=== PATIENT | male | born 1940 | race Caucasian/White ===

== ENCOUNTER 2016-12-09 08:44 | Day surgery (SDC) | payer MEDICARE ==
--- NOTE | 2016-12-02 13:49 | HISTORY AND PHYSICAL E ---
History and Physical NAME: CARLOTTA JAMESON : 1940 AGE: 76Y ADMITTED: 12/09/2016 ROOM: CHIEF COMPLAINT: Patient presented for colon screening. HISTORY OF THE PRESENT ILLNESS: Patient referred to us by Katie. Patient presented regarding colon screening, history of polyps. Patient is being followed by Yu Georges PA-C. Healthcare provider is Yu Georges PA-C. We did colonoscopy in 2014. He had biopsy of polyp, ascending colon; biopsy of polyp, transverse colon. The polyps were tubular adenoma and hyperplastic. PHYSICAL EXAMINATION: GENERAL: Pleasant, alert, oriented, in no acute distress. VITAL SIGNS: Blood pressure 120/80. Pulse 80. Respirations 18. Temp is 98. HEAD, EYES, EARS, NOSE AND THROAT: Normal. ABDOMEN: Soft. NEUROLOGIC: Negative. REVIEW OF SYSTEMS: CARDIAC: Hypertension. ENDOCRINE: Diabetes. GASTROINTESTINAL: Colon screening. History of adenoma polyp. History of hyperplastic polyp. MUSCULOSKELETAL: Arthritis. FAMILY HISTORY: When I saw him last time, his father was alive at 94. His mom with congestive heart failure. MEDICATIONS: Patient takes losartan, metformin, fish oil. CONCLUSIONS: 1. Diabetes. 2. History of polyps. 3. Colon screening. PLAN: Colonoscopy 12/09. DICTATING PHYSICIAN: RETA MAYO M.D. [id number] PHY#: [id number] ID: [id number] JOB#: [id number] ACCT: [id number] cc:RETA MAYO M.D., MARY PA-C >
[~2016-12-09 08:44] MED LIST: EPINEPHRINE INJ 1 MG/10 ML DISP.SYRIN ONE; FLUMAZENIL INJ 0.5 MG/5 ML VIAL IV ONE; GLUCAGON,HUMAN RECOMB 1 MG INJ ONE; GLYCOPYRROLATE INJ 0.4 MG/2 ML VIAL ONE; LIDOCAINE 2% JELLY 30 ML TUBE ONE; NALOXONE HCL INJ/PF 0.4 MG/1 ML SDV ONE; ONDANSETRON HCL INJ/PF 4 MG/2 ML SDV ONE; PROMETHAZINE HCL INJ 25 MG/1 ML VIAL ONE
[2016-12-09] MEDS: MIDAZOLAM 2 MG/2 ML INJ ONE ×2 (09:03→09:06)
[2016-12-09] MEDS: FENTANYL CITRATE INJ/PF 100 MCG/2 ML AMPUL ONE ×2 (09:05→09:08)
[2016-12-09 10:24] VITALS: BP 122/58
--- NOTE | 2016-12-09 11:13 | DISCHARGE SUMMARY E ---
Discharge Summary NAME: CARLOTTA JAMESON : 1940 AGE: 76Y ADMITTED: 12/09/2016 DISCHARGED: 12/09/2016 SUMMARY: This 76-year-old presented with history of adenoma polyps. Today's colonoscopy shows no polyps. The patient did have sigmoid and descending colon diverticulosis. DISCHARGE PLAN: 1. Soft low-residue diet today and then advance to high-fiber diet. 2. Consider follow-up colonoscopy in 5 years pending clinical evaluation. 3. Resume all medications. 4. Assurance. 5. Follow-up office visit in a few days. ALLERGIES: 1. SULFA. 2. STATIN. FINAL DIAGNOSIS: Today's colonoscopy was successful to the cecum. No polyps were seen. Sigmoid and descending colon diverticulosis. DICTATING PHYSICIAN: RETA MAYO M.D. [id number] PHY#: [id number] ID: [id number] JOB#: [id number] ACCT: [id number] cc:RETA MAYO M.D., MARY PA-C >
--- NOTE | 2016-12-09 12:30 | OPERATIVE REPORT E ---
Operative Report NAME: CARLOTTA JAMESON : 1940 AGE: 76Y DATE OF SURGERY: 12/09/2016 ROOM: PREOPERATIVE DIAGNOSES: 1. History of polyps. 2. Adenoma, hyperplastic. 3. Colon screening. PROCEDURE: Colonoscopy. SURGEON: RETA MAYO M.D. ANESTHESIA: Versed 2 and fentanyl 50. TISSUE REMOVED OR ALTERED: None. FINDINGS: Sigmoid descending colon diverticulosis. PROCEDURE: Rectal exam normal. Sigmoid descending colon diverticulosis. Transverse colon normal. Ascending colon normal. Cecum normal. Scope withdrawn from cecum, ascending, transverse, descending, sigmoid, all the way to the rectum. CONCLUSION: Diverticulosis sigmoid descending colon. No polyps. PLAN: Assurance. Soft diet today and then advance to high fiber diet. Consider age and followup colonoscopy after 5 years. DICTATING PHYSICIAN: RETA MAYO M.D. [id number] PHY#: [id number] ID: [id number] JOB#: [id number] ACCT: [id number] cc:RETA MAYO M.D., MARY PA-C >
== END 2016-12-09 10:20 | disposition home or self-care (01) ==
LOC: END 08:44
PROVIDERS: ATTEND Specialist
PROC: 0DJD8ZZ Inspection of Lower Intestinal Tract, Via Natural or Artificial Opening Endoscopic (ICD-10-PCS; principal; 2016-12-09 09:00)
DX: K57.30 Diverticulosis of large intestine without perforation or abscess without bleeding (principal); K63.5 Polyp of colon; M19.90 Unspecified osteoarthritis, unspecified site; I10 Essential (primary) hypertension; E11.9 Type 2 diabetes mellitus without complications; Z79.84 Long term (current) use of oral hypoglycemic drugs; Z79.899 Other long term (current) drug therapy
CPT/HCPCS: 45378; 82962; J2250; J3010; J1610; J2405; J0171; J2310; J2550; J3490